=== PATIENT | male | born 1965 | race Two or more races ===

== ENCOUNTER 2016-04-02 15:50 | Emergency (ER) | payer MEDICAID ==
[~2016-04-02] VITALS: Ht 167.6 cm; Wt 77.1 kg
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
[2016-04-02] MEDS ORDERED: TRAMADOL HCL50 MG ORAL (18:11)
[2016-04-02] MEDS ORDERED: IBUPROFEN600 MG ORAL (18:11)
[2016-04-02 18:39] VITALS: BP 162/76
--- NOTE | 2016-04-03 12:00 | Diagnostic Imaging Report ---
Indication: Pain Comparison: None Findings: Two views of the right tibia and fibula were obtained. Lateral compression plate noted in the proximal tibia. Hardware alignment and position appear satisfactory. No acute fracture identified on this study. Old healed fracture of the tibia and fibula noted. Impression: No acute injury
== END 2016-04-02 18:39 | disposition home or self-care (01) ==
LOC: EDBD 15:50 → EMR 16:05
DX: M79.661 Pain in right lower leg (principal); V49.60XA Unspecified car occupant injured in collision with unspecified motor vehicles in traffic accident, initial encounter; Y92.410 Unspecified street and highway as the place of occurrence of the external cause
CPT/HCPCS: 99283